=== PATIENT | female | born 1980 | race Caucasian/White ===

== ENCOUNTER 2021-02-10 11:53 | Outpatient (CLI) | payer OTHER, BC ==
--- NOTE | 2021-02-10 15:58 | XRAY Report ---
PROCEDURE: Lumbar Spine 2 View INDICATIONS: STRAIN OF MUSCLE, FASCIA, AND TENDON OF LOWER BACK TECHNIQUE: 3 views of the lumbar spine were acquired. COMPARISON: None. FINDINGS: Bones: 5 [id number] vertebrae are present. There is levoscoliosis of the lumbar spine centered at L3. No acute vertebral body compression fractures. No suspicious bony lesions. Multilevel lumb ar spondylosis with degenerative endplate changes, disc space loss and endplate osteophyte formation. Findings are most pronounced at L2-3 and L4-5. Mid and lower lumbar facet arthropathy. Soft tissues: Overlying bowel gas pattern is normal. No suspicious soft tissue calcifications. IMPRESSION: Levoscoliosis centered at L3 with associated multilevel lumbar spondylosis most pronounc ed at L2-3 and L4-5. Otherwise, no acute osseous abnormalities identified in the lumbar spine. Reviewed by: Sam Tipton MD on 02/10/2021 3:57 PM PST Approved by: Sam Tipton MD on 02/10/2021 3:57 PM PST Station ID: [id number]
== END 2021-02-10 23:59 | disposition home or self-care (01) ==
LOC: DI.N 11:53
PROVIDERS: ATTEND Family Medicine
DX: M47.816 Spondylosis without myelopathy or radiculopathy, lumbar region (principal); M41.56 Other secondary scoliosis, lumbar region

== ENCOUNTER 2021-07-14 08:00 | Outpatient (CLI) | payer MEDICAID ==
--- NOTE | 2021-07-14 17:29 | XRAY Report ---
PROCEDURE: Hand 3 View LT INDICATIONS: THUMB PAIN TECHNIQUE: 3 views of the hand(s) acquired. COMPARISON: None FINDINGS: Bones: No acute fractures or dislocations. No suspicious bony lesions. Possible subchondral erosion near the distal pole of the scaphoid.. Moderate degenerative changes of the left thumb metacarpal ph alangeal joint. Soft tissues: No suspicious soft tissue calcifications. IMPRESSION: Left hand without acute fracture or dislocation. 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 Possible erosion of the distal s caphoid. An inflammatory arthropathy not completely excluded. Recommend clinical/laboratory correlati on. Reviewed by: Sam Tipton MD on 07/14/2021 5:27 PM PDT Approved by: Sam Tipton MD on 07/14/2021 5:27 PM PDT Station ID: [id number]
== END 2021-07-14 23:59 | disposition home or self-care (01) ==
LOC: DI.WOS 08:00
PROVIDERS: ATTEND Orthopaedic Surgery
DX: M18.12 Unilateral primary osteoarthritis of first carpometacarpal joint, left hand (principal)

== ENCOUNTER 2021-09-03 08:00 | Outpatient (CLI) | payer MEDICAID ==
--- NOTE | 2021-09-03 10:38 | XRAY Report ---
PROCEDURE: Shoulder 3 View BILAT INDICATIONS: BILAT SHOULDER PX TECHNIQUE: 4 views of the bilateral shoulders. COMPARISON: None. FINDINGS: Right shoulder: No acute fracture or dislocation. Normal alignment. No suspicious bone lesion. Left shoulder: No acute fracture or dislocation. Normal alignment. No suspicious bone lesion. Soft tissues: No suspicious soft tissue calcifications. IMPRESSION: No acute radiographic abnormality. Reviewed by: Silas Strauss MD on 09/03/2021 10:37 AM PDT Approved by: Silas Strauss MD on 09/03/2021 10:37 AM PDT Station ID: [id number]
== END 2021-09-03 23:59 | disposition home or self-care (01) ==
LOC: DI.WOS 08:00
PROVIDERS: ATTEND Orthopaedic Surgery
DX: M25.511 Pain in right shoulder (principal); M25.512 Pain in left shoulder

== ENCOUNTER 2022-11-25 11:49 | Outpatient (CLI) | payer MEDICAID ==
[2022-11-25 17:47] LABS: BASOPHILS # (AUTO) 0.1 10^3/uL (0.0-0.1); BASOPHILS % (AUTO) 1.1 %; EOSINOPHILS # (AUTO) 0.4 10^3/uL (0.0-0.7); HCT - HEMATOCRIT 39.6 % (37.0-47.0); HGB - HEMOGLOBIN 12.6 g/dL (12.0-16.0); LYMPHOCYTES # (AUTO) 1.6 10^3/uL (1.5-3.5); LYMPHOCYTES % (AUTO) 25.9 %; MEAN CORPUSCULAR HEMOGLOBIN 30.1 pg (27.0-31.0); MEAN CORPUSCULAR HGB CONC 31.8 g/dL (32.0-36.0); MEAN CORPUSCULAR VOLUME 94.5 fL (81.0-99.0); MEAN PLATELET VOLUME 12.9 fL (7.9-10.8); MONOCYTES # (AUTO) 0.3 10^3/uL (0.0-1.0); MONOCYTES % (AUTO) 4.9 %; NEUTROPHILS # (AUTO) 3.8 10^3/uL (1.5-6.6); NEUTROPHILS % (AUTO) 61.9 %; PLT - PLATELET COUNT 194 10^3/uL (130-450); RED BLOOD COUNT 4.19 10^6/uL (4.20-5.40); RED CELL DISTRIBUTION WIDTH 14.5 % (12.0-15.0); WHITE BLOOD COUNT 6.2 x10^3/uL (4.8-10.8)
[2022-11-25 17:58] LABS: ALBUMIN 4.2 g/dL (3.2-5.5); ALBUMIN/GLOBULIN RATIO 1.7 (1.0-2.2); ALKALINE PHOSPHATASE 52 IU/L (42-121); ALT ALANINE AMINOTRANSFERASE 13 IU/L (10-60); AST ASPARTATE AMINOTRANSFERASE 14 IU/L (10-42); BILIRUBIN,TOTAL 0.7 mg/dL (0.2-1.0); BUN - BLOOD UREA NITROGEN 15 mg/dL (6-20); CALCIUM 9.4 mg/dL (8.5-10.3); CARBON DIOXIDE - CO2 29 mmol/L (21-32); CHLORIDE 104 mmol/L (101-111); CHOL/HDL RATIO 2.8 (<4.4); CHOLESTEROL 188 mg/dL; CREATININE 0.8 mg/dL (0.6-1.3); GFR - MDRD 78 (>89); GLUCOSE 90 mg/dL (74-104); HDL CHOLESTEROL 68 mg/dL; LDL CHOLESTEROL,CALCULATED 97 mg/dL; LDL/HDL RATIO 1.4 (<4.4); POTASSIUM 4.2 mmol/L (3.5-4.5); SODIUM 138 mmol/L (135-145); TOTAL PROTEIN 6.7 g/dL (6.4-8.9); TRIGLYCERIDES 117 mg/dL (48-352); VLDL CHOLESTEROL 23 mg/dL
[2022-11-25 18:15] LABS: THYROID STIMULATING HORMONE 1.36 uIU/mL (0.34-5.60)
[2022-11-25 21:05] LABS: CHLAMYDIA TRACHOMATIS DNA NEGATIVE (NEGATIVE); NEISSERIA GONORRHOEAE DNA NEGATIVE (NEGATIVE); TRICHOMONAS VAGINALIS DNA NEGATIVE (NEGATIVE)
[2022-11-26 04:09] LABS: HIV SCREEN 4TH GENERATION Non Reactive (Non Reactive)
[2022-11-26 05:13] LABS: RPR Non Reactive (Non Reactive)
[2022-11-26 07:10] LABS: HSV 1 IGG TYPE SPEC 9.42 index (0.00-0.90); HSV 2 IGG TYPE SPEC <0.91 index (0.00-0.90)
== END 2022-11-25 11:50 | disposition home or self-care (01) ==
LOC: LAB.N 11:49
PROVIDERS: ATTEND Physician Assistant
DX: Z20.2 Contact with and (suspected) exposure to infections with a predominantly sexual mode of transmission (principal); Z13.9 Encounter for screening, unspecified
CPT/HCPCS: 36415; 80053; 80061; 83721; 84443; 85025; 86592; 86695; 86696; 87389; 87491; 87591; 87661

== ENCOUNTER 2022-12-04 09:38 | Outpatient (CLI) | payer MEDICAID ==
--- NOTE | 2022-12-04 12:27 | Ultrasound Report ---
PROCEDURE: Duplex Ext Veins Bilateral INDICATIONS: ANIBAL Brown TECHNIQUE: Real-time imaging, as well as color and pulse Doppler interrogation, were performed of the deep veins of both legs from the inguinal ligament to the popliteal fossa. Attempted visualization of the calf veins was performed. COMPARISON: None FINDINGS: The deep veins are normally compressible, and free of intraluminal thrombus. Color and pu lse Doppler demonstrate normal phasic intravascular flow. There is normal augmentation response to d istal compression maneuver. IMPRESSION: No deep venous thrombosis of the visualized lower extremities. Reviewed by: Donna Real MD on 12/04/2022 12:26 PM PDT Approved by: Donna Real MD on 12/04/2022 12:26 PM PDT Station ID: [id number]
== END 2022-12-04 09:39 | disposition home or self-care (01) ==
LOC: DI 09:38
PROVIDERS: ATTEND Physician Assistant
DX: I83.90 Asymptomatic varicose veins of unspecified lower extremity (principal); R60.0 Localized edema
CPT/HCPCS: 93970

== ENCOUNTER 2023-11-10 14:32 | Outpatient (CLI) | payer MEDICAID ==
--- NOTE | 2023-11-11 16:06 | Mammography Report ---
BILATERAL DIGITAL SCREENING MAMMOGRAM 3D/2D: 11/10/2023 CLINICAL: Routine screening. Additional films were requested but not obtained. There are scattered areas of fibroglandular density (category b / 25%-50% glandular tissue). No significant masses, calcifications, or other findings are seen in either breast. IMPRESSION: NEGATIVE There is no mammographic evidence of malignancy. A 1 year screening mammogram is recommended. Based on the Tyrer Cuzick model (a risk assessment model) the patient's lifetime risk is 13.5% and he r 10 year risk is 2.5%. According to the ACR, ACS, and NCCN guidelines, an annual breast MRI exam efrem ng with mammogram is recommended if the patient's lifetime risk is 20% or greater. This exam was interpreted at Station ID: [id number]. NOTE: For mammograms, a report in lay terms will be sent to the patient. Approximately 15% of breast malignancies will not be visualized mammographically. In the management of a palpable breast mass, a negative mammogram must not discourage biopsy of a clinically suspicious lesion. Electronically Signed By: Ck triplett/sierra:11/11/2023 15:25:36 letter sent: No_Letter ACR BI-RADS Category 1: Negative PARENCHYMAL PATTERN: (A) - The breast(s) demonstrate(s) scattered fibroglandular densities. BI-RADS CATEGORY: (1) - 1 RECOMMENDATION: (ANNUAL) - Recommend routine annual screening mammography. [id number] 1 year screening LATERALITY: (B)
== END 2023-11-10 14:33 | disposition home or self-care (01) ==
LOC: DI 14:32
DX: Z12.31 Encounter for screening mammogram for malignant neoplasm of breast (principal)